=== PATIENT | male | born 1995 | race Caucasian/White ===

== ENCOUNTER 2017-01-09 07:52 | Emergency (ER) | payer BC ==
--- NOTE | 2017-01-09 07:55 | UC ---
Eye Complaint HPI - HPI Summary HPI Summary: 21 YEAR OLD MALE PRESENTS WITH COMPLAINS OF RIGHT EYE ERYTHEMA/PURULENT DISCHARGE. - History of Current Complaint Stated Complaint: EYE COMPLAINT Time Seen by Provider: 01/09/17 07:53 Hx Obtained From: Patient Onset/Duration: Sudden Onset Timing: Constant Severity Initially: Moderate Severity Currently: Moderate Pain Scale Used: 0-10 Numeric - 5 Location of Injury: Conjunctiva, Eye Lid (lower), Eye Lid (upper) Character: Sharp Aggravating Factor(s): Nothing Alleviating Factor(s): Nothing - Allergies/Home Medications Allergies/Adverse Reactions: Allergies Allergy/AdvReac Type Severity Reaction Status Date / Time Bee Venom Allergy Swelling Verified 01/09/17 08:00 Of Face,Lips,& Throat PMH/Surg Hx/FS Hx/Imm Hx Previously Healthy: Yes - Surgical History Surgical History: None - Family History Known Family History: Negative: Cardiac Disease, Hypertension, Diabetes - Social History Alcohol Use: Weekly Substance Use Type: Marijuana Smoking Status (MU): Never Smoked Tobacco - Immunization History Most Recent Influenza Vaccination: Not the Review of Systems Constitutional: Negative Skin: Negative Eyes: Drainage, Eye Redness ENT: Negative Respiratory: Negative Cardiovascular: Negative Gastrointestinal: Negative Genitourinary: Negative Motor: Negative Neurovascular: Negative Musculoskeletal: Negative Neurological: Negative Psychological: Negative All Other Systems Reviewed And Are Negative: Yes Physical Exam Triage Information Reviewed: Yes Eye Exam: Normal Eyes: Positive: Conjunctiva Inflamed, Discharge ENT Exam: Normal Dental Exam: Normal Neck exam: Normal Neck: Positive: 1 Respiratory Exam: Normal Cardiovascular Exam: Normal Abdominal Exam: Normal Musculoskeletal Exam: Normal Neurological Exam: Normal Psychological Exam: Normal Skin Exam: Normal Eye Complaint Course/Dx - Differential Dx/Diagnosis Differential Diagnosis/HQI/PQRI: Conjunctivitis Provider Diagnoses: RIGHT EYE CONJUNCTIVITIS Discharge - Discharge Plan Condition: Stable Disposition: HOME Prescriptions: Naphazoline W/ Pheniramine [Opcon-A] 1 kevin RIGHT EYE Q6HR #1 bottle Polymyx/Trimethoprim OPTH* [Polytrim OPHTH*] 1 drop RIGHT EYE Q6H #1 btl Patient Education Materials: Allergic Rhinitis (ED), Conjunctivitis (ED) Referrals: Ncik Marks [Medical Doctor] -
[2017-01-09 08:06] VITALS: BP 115/70
[2017-01-09] MEDS ORDERED: Aspirin Low Dose CHEW TAB* 81 MG PO ONE (10:49)
== END 2017-01-09 08:15 | disposition home or self-care (01) ==
LOC: UCCORT 07:52
DX: H10.9 Unspecified conjunctivitis (principal); Z91.030 Bee allergy status; F12.90 Cannabis use, unspecified, uncomplicated
CPT/HCPCS: 99212; G0463

== ENCOUNTER 2017-09-22 12:09 | Emergency (ER) | payer BC, OTHER ==
[2017-09-22 12:48] VITALS: BP 114/73
--- NOTE | 2017-09-22 12:59 | UC ---
Throat Pain/Nasal Duglas HPI - HPI Summary HPI Summary: sore throat x 2 days + cough , chest congestion no fever, + chills - History of Current Complaint Chief Complaint: UCRespiratory Stated Complaint: HEADACHE/ST Time Seen by Provider: 09/22/17 12:47 Hx Obtained From: Patient Onset/Duration: Gradual Onset, Lasting Days - 2, Still Present Severity: Moderate Pain Intensity: 5 Cough: Nonproductive Associated Signs & Symptoms: Positive: Nasal Discharge, Fever. Negative: Wheezing, Hoarseness, Sinus Discomfort, Rash - Allergies/Home Medications Allergies/Adverse Reactions: Allergies Allergy/AdvReac Type Severity Reaction Status Date / Time bee venom protein (honey bee) Allergy Swelling Verified 09/22/17 12:42 Of Face,Lips,& Throat Home Medications: Home Medications Dextroamphetamine/Amphetamine [Adderall 30 mg-] 1 tab PO DAILY 09/22/17 [ History Confirmed 09/22/17] PMH/Surg Hx/FS Hx/Imm Hx Previously Healthy: Yes - Surgical History Surgical History: Yes Surgery Procedure, Year, and Place: hernia - Family History Known Family History: Negative: Cardiac Disease, Hypertension, Diabetes - Social History Alcohol Use: None Substance Use Type: None Smoking Status (MU): Never Smoked Tobacco - Immunization History Most Recent Influenza Vaccination: Not the season Review of Systems Constitutional: Fever, Chills, Fatigue Skin: Negative Eyes: Negative ENT: Sore Throat, Nasal Discharge Respiratory: Cough Cardiovascular: Negative Gastrointestinal: Negative Is Patient Immunocompromised?: No All Other Systems Reviewed And Are Negative: Yes Physical Exam Triage Information Reviewed: Yes Appearance: Well-Appearing, No Pain Distress, Well-Nourished Vital Signs: Initial Vital Signs Temp 98.5 F 09/22/17 12:43 Pulse 69 09/22/17 12:43 Resp 16 09/22/17 12:43 BP 114/73 09/22/17 12:43 Pulse Ox 99 09/22/17 12:43 Vital Signs Reviewed: Yes Eyes: Positive: Conjunctiva Clear ENT: Positive: Normal ENT inspection, Hearing grossly normal, Pharyngeal erythema, Nasal drainage, TMs normal Neck: Positive: Supple, Nontender, No Lymphadenopathy Respiratory: Positive: Chest non-tender, Lungs clear, Normal breath sounds, No respiratory distress Cardiovascular: Positive: RRR, No Murmur, Pulses Normal Skin Exam: Normal Throat Pain/Nasal Course/Dx - Differential Dx/Diagnosis Provider Diagnoses: viral pharyngitis Discharge - Sign-Out/Discharge Documenting (check all that apply): Discharge/Admit/Transfer - Discharge Plan Condition: Stable Disposition: HOME Patient Education Materials: Pharyngitis (ED) Forms: *Work Release Referrals: ALKA Triplett [Primary Care Provider] - If Needed - Billing Disposition and Condition Condition: STABLE Disposition: HOME
== END 2017-09-22 13:22 | disposition home or self-care (01) ==
LOC: UCCORT 12:09
DX: J02.8 Acute pharyngitis due to other specified organisms (principal)
CPT/HCPCS: 87651; 99211; G0463

== ENCOUNTER 2017-10-07 07:23 | Emergency (ER) | payer BC, OTHER ==
[2017-10-07 07:50] VITALS: BP 125/87
--- NOTE | 2017-10-07 07:55 | UC ---
Throat Pain/Nasal Duglas HPI - HPI Summary HPI Summary: Sore throat for about 7 days and then last night subjective fever and chills. No cough. Some mild congestion as well. - History of Current Complaint Chief Complaint: UCGeneralIllness Stated Complaint: ST/UPSET STOMACH Time Seen by Provider: 10/07/17 07:43 Hx Obtained From: Patient Onset/Duration: Gradual Onset, Lasting Days, Still Present Severity: Moderate Pain Intensity: 6 Cough: None Associated Signs & Symptoms: Positive: Dysphagia, Fever. Negative: Sinus Discomfort, Nasal Discharge, Vomiting, Rash - There is nausea without vomiting or diarrhea and no rashes. - Epiglottits Risk Factors Epiglottis Risk Factors: Negative - Allergies/Home Medications Allergies/Adverse Reactions: Allergies Allergy/AdvReac Type Severity Reaction Status Date / Time bee venom protein (honey bee) Allergy Swelling Verified 10/07/17 07:50 Of Face,Lips,& Throat PMH/Surg Hx/FS Hx/Imm Hx Previously Healthy: Yes - Surgical History Surgical History: Yes Surgery Procedure, Year, and Place: RIght inguinal hernia - Family History Known Family History: Negative: Cardiac Disease, Hypertension, Diabetes - Social History Occupation: Employed Full-time Alcohol Use: Rare Substance Use Type: None Smoking Status (MU): Never Smoked Tobacco - Immunization History Most Recent Influenza Vaccination: Not the season Review of Systems ENT: Sore Throat All Other Systems Reviewed And Are Negative: Yes Physical Exam Triage Information Reviewed: Yes Appearance: Well-Appearing, No Pain Distress, Well-Nourished Vital Signs: Initial Vital Signs Temp 98.6 F 10/07/17 07:48 Pulse 104 10/07/17 07:48 Resp 16 10/07/17 07:48 BP 125/87 10/07/17 07:48 Pulse Ox 99 10/07/17 07:48 Vital Signs Reviewed: Yes Eyes: Positive: Conjunctiva Clear. Negative: Conjunctiva Inflamed ENT: Positive: Pharyngeal erythema, Nasal congestion, TMs normal, Tonsillar swelling, Tonsillar exudate, Uvula midline. Negative: Nasal drainage, TM bulging, TM dull, TM red, Trismus, Muffled voice, Sinus tenderness Neck: Positive: Supple, Nontender, No Lymphadenopathy. Negative: Nuchal Rigidity Respiratory: Positive: Lungs clear, Normal breath sounds, No respiratory distress, No accessory muscle use. Negative: Respiratory distress, Decreased breath sounds, Accessory muscle use, Crackles, Rhonchi, Stridor, Wheezing Cardiovascular: Positive: No Murmur, Pulses Normal, Brisk Capillary Refill Abdomen Description: Positive: No Organomegaly, Soft. Negative: Distended, Guarding Musculoskeletal: Positive: Strength Intact, ROM Intact, No Edema Neurological: Positive: Alert, Muscle Tone Normal. Negative: Fatigued Psychological: Positive: Age Appropriate Behavior Skin: Positive: rashes Throat Pain/Nasal Course/Dx - Differential Dx/Diagnosis Provider Diagnoses: bacterial pharyngitis. Discharge - Sign-Out/Discharge Documenting (check all that apply): Discharge/Admit/Transfer - Discharge Plan Condition: Good Disposition: HOME Prescriptions: Amoxicillin PO (*) [Amoxicillin 875 MG (*)] 875 mg PO BID #20 tab Patient Education Materials: Pharyngitis (ED) Forms: *Work Release Referrals: ALKA Triplett [Primary Care Provider] - - Billing Disposition and Condition Condition: GOOD Disposition: HOME
== END 2017-10-07 07:57 | disposition home or self-care (01) ==
LOC: UCCORT 07:23
DX: J02.8 Acute pharyngitis due to other specified organisms (principal)
CPT/HCPCS: 87651; 99212; G0463

== ENCOUNTER 2018-04-19 16:21 | Emergency (ER) | payer BC ==
[2018-04-19 16:43] VITALS: BP 139/86
--- NOTE | 2018-04-19 17:09 | ED ---
HPI Chest Pain - HPI Summary HPI Summary: 22 yr old male with the complaint of throat pain, chest pain. Onset of symptoms a couple of week ago. he has pain in his throat. Pain in his throat present when he does swallow. He states the pain is a soreness. He denies change in his voice, denies swelling in neck. He thinks worse with eating fatty foods. He denies SOB. He has has pain in his chest as well intermittently. Pain not present now. Denies fever, chills, coughing. The patient denies palpitations. The patient has not had dizziness. - History of Current Complaint Chief Complaint: UCGeneralIllness Time Seen by Provider: 04/19/18 16:40 Pain Intensity: 0 - Allergy/Home Medications Allergies/Adverse Reactions: Allergies Allergy/AdvReac Type Severity Reaction Status Date / Time bee venom protein (honey bee) Allergy Swelling Verified 04/19/18 16:43 Of Face,Lips,& Throat Home Medications: Home Medications Esomeprazole Magnesium [Nexium 24Hr] 20 mg PO DAILY 04/19/18 [History Confirmed 04/19/18] PMH/Surg Hx/FS Hx/Imm Hx - Surgical History Surgery Procedure, Year, and Place: RIght inguinal hernia Infectious Disease History: No Infectious Disease History: Reports: Traveled Outside the [place] in Last 30 Days - [place] - Family History Known Family History: Negative: Cardiac Disease, Hypertension, Diabetes - Social History Occupation: Employed Full-time Alcohol Use: Rare Substance Use Type: Reports: None Smoking Status (MU): Never Smoked Tobacco Review of Systems Constitutional: Negative Positive: Sore Throat Positive: Chest Pain All Other Systems Reviewed And Are Negative: Yes Physical Exam Triage Information Reviewed: Yes Vital Signs On Initial Exam: Initial Vitals Temp Pulse Resp BP Pulse Ox 99.1 F 72 16 139/86 99 04/19/18 16:37 04/19/18 16:37 04/19/18 16:37 04/19/18 16:37 04/19/18 16:37 Vital Signs Reviewed: Yes Appearance: Positive: Well-Appearing, No Pain Distress Skin: Positive: Warm, Skin Color Reflects Adequate Perfusion Head/Face: Positive: Normal Head/Face Inspection Eyes: Positive: EOMI ENT: Positive: Pharyngeal erythema, TMs normal, Uvula midline. Negative: Nasal congestion, Nasal drainage, Muffled voice, Hoarse voice Neck: Positive: Supple, Nontender, No Lymphadenopathy, Other: - scar left side of neck from surgery as a child. Respiratory/Lung Sounds: Positive: Clear to Auscultation, Breath Sounds Present Cardiovascular: Positive: RRR. Negative: Murmur Abdomen Description: Positive: Nontender. Negative: Distended Musculoskeletal: Positive: Strength/ROM Intact Neurological: Positive: Sensory/Motor Intact, Alert, Oriented to Person Place, Time, CN Intact II-III Psychiatric: Positive: Normal Diagnostics - Vital Signs Vital Signs Temp Pulse Resp BP Pulse Ox 04/19/18 16:37 99.1 F 72 16 139/86 99 - Laboratory Lab Results: Lab Results 04/19/18 Range/Units 16:41 Group A Strep Rapid Negative (Negative) Lab Statement: Any lab studies that have been ordered have been reviewed, and results considered in the medical decision making process. - Radiology chest pa lat Radiology Interpretation Completed By: Radiologist Kimberly SERRANO - EKG 04/19/18 Cardiac Rate: Bradycardia EKG Rhythm: Sinus Bradycardia Ectopy: None Summary of EKG Findings: There is ST elevation that appears consitent with J point elevation. There is intraventricular conduction delay. Chest Pain Course/Dx - Course Course Of Treatment: 22 yr old with throat pain, chest pain. EKG without STEMI, chest xray without acute abnormality. I recommend he go to the ER for further work up of his neck pain, pain when swallowing. he does have a distant diagnosis of cancer per mom in his neck with a mole/mass removed as a child. He is stable to go by car with his mom. He has no primary doc to follow up with. - Diagnoses Provider Diagnoses: Throat pain in adult, Chest pain Discharge - Sign-Out/Discharge Documenting (check all that apply): Patient Departure All imaging exams completed and their final reports reviewed: Yes - Discharge Plan Condition: Good Disposition: HOME-RECOMMEND TO ED Patient Education Materials: Chest Pain (ED), Pharyngitis (ED), Neck Pain (ED) , Hypertension (ED) Referrals: No Primary Care Phys,NOPCP [Primary Care Provider] - Additional Instructions: You should go to the ER now for further work up of your neck, throat, and chest pain. - Billing Disposition and Condition Condition: GOOD Disposition: Home-Recommend to ED
== END 2018-04-19 17:40 | disposition home health service (06) ==
LOC: UCCORT 16:21
DX: J02.9 Acute pharyngitis, unspecified (principal); R07.9 Chest pain, unspecified
CPT/HCPCS: 71046; 87651; 93005; 99212; G0463

== ENCOUNTER 2019-08-11 13:11 | Emergency (ER) | payer BC ==
--- NOTE | 2019-08-11 14:12 | UC ---
General HPI - HPI Summary HPI Summary: 23 yo arrived today with multiple symptoms of sore throat, dypshagia, nausea, cough, nausea and diarrhea. Phone call was placed to the patient while he was still isolated to confirm that he did not have a symptom complex suggestive of COVID 19. --he has had nausea for about a month, with onset around the time that he broke up with his girlfiend and he faced increased family stress due to the of his grandmother. This was not an expected loss for him, as communication breakdown in his maternal family resulted in him not knowing that she was dying. Had not spoken to her in some time. Feels that he is getting over the break up, but now has additional stress of being furloughed from his work with [employer] and now living with his father and stepmother and brother. --he has some anxiety and low spirits, but feels that he is getting on top of this and wanting to get on with his life. He is trying to increase his activty. Denies depression or suicidality. (FH of brother with depression.). --appetite has been poor, he has been making poor food choices, and he has an upset stomach. Nausea is worsening. Loose watery stools without blood 1-2 times per day, which is new for him. No vomiting. No weight loss. --alcohol intake is about one beer per day --he has not used any gi meds --he has throat irritation in the mid trachea, mild dysphagia, no fever, and states that his cough is occasional and comes from irritation in his trachea. He has no shortness of breath or chest pain. - History of Current Complaint Chief Complaint: UCGeneralIllness Stated Complaint: ST,COUGH,NAUSEA,FATIGUE Hx Obtained From: Patient Onset/Duration: Gradual Onset Timing: Intermittent Episodes Lasting: Onset Severity: Mild Current Severity: Moderate Pain Intensity: 0 Pain Location at: mid tracheal area Associated Signs & Symptoms: Positive: Decreased Oral Intake, Nausea - Allergy/Home Medications Allergies/Adverse Reactions: Allergies Allergy/AdvReac Type Severity Reaction Status Date / Time bee venom protein (honey bee) Allergy Swelling Verified 08/11/19 13:35 Of Face,Lips,& Throat Home Medications: Home Medications Omeprazole 40 mg PO DAILY #30 capsule. 08/11/19 [Rx] Ondansetron [Ondansetron Odt] 4 mg PO TID PRN #15 tab.rapdis 08/11/19 [Rx] PMH/Surg Hx/FS Hx/Imm Hx Previously Healthy: Yes - Surgical History Surgical History: Yes Surgery Procedure, Year, and Place: RIght inguinal hernia - Family History Known Family History: Positive: Other - brother has depression Negative: Cardiac Disease, Hypertension, Diabetes - Social History Occupation: Unemployed Lives: With Family Alcohol Use: Rare Substance Use Type: None Smoking Status (MU): Never Smoked Tobacco - Immunization History Most Recent Influenza Vaccination: Not the season Review of Systems All Other Systems Reviewed And Are Negative: Yes Constitutional: Positive: Negative Skin: Positive: Negative Eyes: Positive: Negative ENT: Positive: Sore Throat. Negative: Sinus Congestion, Sinus Pain/Tenderness Respiratory: Positive: Cough Cardiovascular: Positive: Negative Gastrointestinal: Positive: Diarrhea, Nausea Genitourinary: Positive: Negative Motor: Positive: Negative Neurovascular: Positive: Negative Musculoskeletal: Positive: Negative Neurological/Mental Status: Positive: Negative Psychological: Positive: Other - some low spirits, no suicidality, Feels improving. Physical Exam Triage Information Reviewed: Yes Appearance: Well-Appearing, Well-Nourished, Other: - good eye contact, relates information easily, with appropriate mood and affect. ENT Exam: Normal ENT: Positive: Pharynx normal, TMs normal. Negative: Tonsillar swelling Dental Exam: Normal Neck: Positive: Supple, Nontender, No Lymphadenopathy Respiratory: Positive: Lungs clear, Normal breath sounds Cardiovascular: Positive: RRR, No Murmur Abdomen Description: Positive: Nontender, No Organomegaly, Soft Bowel Sounds: Positive: Present Musculoskeletal Exam: Normal Neurological Exam: Normal Psychological Exam: Normal Skin Exam: Normal Course/Dx - Course Course Of Treatment: Discussed that his sore throat and dysphagia. combined with recent stress and gi symptoms, are most suggestive of acid related problems. Will treat as such and advised follow up needed if not improving. - Diagnoses Provider Diagnosis: Gastritis, Acute stress reaction Discharge ED - Sign-Out/Discharge Documenting (check all that apply): Patient Departure All imaging exams completed and their final reports reviewed: No Studies - Discharge Plan Condition: Stable Disposition: HOME Prescriptions: Omeprazole 40 mg PO DAILY #30 capsule. Ondansetron [Ondansetron Odt] 4 mg PO TID PRN #15 tab.rapdis PRN Reason: Nausea Patient Education Materials: Gastritis (ED) Referrals: No Primary Care Phys,NOPCP [Primary Care Provider] - Additional Instructions: It is likely that your nausea and sore throat are related to increased stomach acidity due to stress and not eating well. Taken omeprazole once daily prior to a meal. In the interim, use ondansetron for nausea. You should see improvement in about 3 days; follow up if you are having persistent diarrhea or abdominal pain. Minimize intake of caffeine and alcohol. - Billing Disposition and Condition Condition: STABLE Disposition: Home
[2019-08-11 14:26] VITALS: BP 122/60
== END 2019-08-11 14:26 | disposition home or self-care (01) ==
LOC: UCCORT 13:11
DX: K29.70 Gastritis, unspecified, without bleeding (principal); F43.0 Acute stress reaction; Z91.030 Bee allergy status
CPT/HCPCS: 99212; G0463